=== PATIENT | female | born 1985 | race African-American/Black ===

== ENCOUNTER 2023-01-15 17:23 | Emergency (ER) | payer MEDICAID, SELFPAY ==
[2023-01-15 17:25] VITALS: BP 108/79; PULSE 82; RESP 17; TEMP 36.6; O2SAT 100
--- NOTE | 2023-01-15 18:20 | EX.ED.DYSGE1 ---
HPI History of Present Illness Chief Complaint: Back Detail of Chief Complaint: Scapular pain that started approximately a week ago Informant: patient Onset/Context/Timing Onset: Weeks Context: Sudden Onset Timing: Intermittent Quality: Pain Location: Left scapular region Current Severity: Mild Maximum Severity: Severe Worsened by: Movement of left upper extremity Relieved by: Nothing Associated Symptoms Associated Symptoms: None Narrative Narrative: Patient is a 37-year-old woman who is concerned that she is having a heart attack as her mother of a heart attack. She denies chest pain. She complains of left scapular pain started a week ago. Is described as a sharp pain. Movement of her left upper extremity increases the pain. She has no nausea, vomiting, shortness of breath or diaphoresis. She states she had twinges of chest pain today. She denies black or maroon stool. She denies history of hiatal hernia, reflux or peptic ulcer disease. She denies recent upper respiratory tract infectious symptoms. She denies fever, chills night sweats. She denies headache, visual, ocular auditory symptoms. She denies history of blood clot. She denies leg pain, swelling discoloration. She has no risk factors for blood clot. Prior similar symptoms: No Recent Illness/Hospitalization: No PFSH PFSH Medical History no medical history no medical history Home Medications naproxen 500 mg tablet 500 mg PO BID #14 tabs 01/15/23 [Rx Last Taken Unknown] Allergy/AdvReac Type Severity Reaction Status Date / Time No Known Allergies Allergy Verified 01/15/23 17:28 Surgical History no surgical history no surgical history Social History (Updated 01/15/23 @ 18:[address] Efren Bernstein MD) substance use type: does not use ROS ROS ED Constitutional Constitutional ED: Denies chills, fever(s), subjective, sweats or weight loss Eyes Eyes: Denies blurry vision or change in vision ENT ENT ED: Denies ear pain, rhinorrhea or sore throat Cardiovascular Cardiovascular: Reports chest pain; Denies orthopnea, palpitations, paroxysmal nocturnal dyspnea or racing heartbeat Respiratory/Chest Respiratory/Chest: Denies cough, dyspnea, dyspnea on exertion, orthopnea or paroxysmal nocturnal dyspnea Gastrointestinal Gastrointestinal: Denies abdominal pain, constipation, diarrhea, melena, nausea or vomiting Musculoskeletal Musculoskeletal: Reports back pain; Denies arthralgias, myalgias or neck pain Integumentary Denies rash Neurologic Neurologic: Denies paresthesias or weakness Psychiatric Psychiatric: Reports anxiety Hematologic/Lymphatic Hematologic/Lymphatic: Reports systems reviewed and no addt'l complaints, except as documented EXAM Physical Exam Const Vital Signs: 01/15/23 17:25 Temperature 97.8 F Temperature Source Temporal Pulse Rate 82 Respiratory Rate 17 Blood Pressure 108/79 Blood Pressure Mean 88 Pulse Ox 100 Oxygen Delivery Method Room Air Positive well nourished, well developed and obese General Appearance ED: well developed and NAD; Negative for pallor Nutritional Appearance: obese HEENT Reports moist mucous membranes HEENT Narrative: Head is atraumatic normocephalic. Ears normal. Nares patent. Posterior pharynx is normal. Eyes PERRL and EOMs intact bilaterally General Eye ED: Negative for pale conjunctiva or scleral icterus Neck no lymphadenopathy, supple and no JVD Chest Wall palpation of chest normal Resp normal respiratory effort and clear to auscultation bilaterally Effort and Inspection: Negative for pain with movement Cardio regular rate, regular rhythm, S1 normal heart sound, S2 normal heart sound and no murmurs Back/Spine no CVA tenderness Back/Spine Narrative: There is pain outpatient over the left scapula. Having patient pull her left arm down against resistance causes her pain over the latissimus dorsi region. This reproduces her pain exact. Cervical Spine: Negative for cervical spine tenderness Thoracic Spine / Upper Back: Negative for thoracic spinal tenderness Lumbar Spine / Lower Back: lumbar spinal tenderness Neuro oriented x3, CN's II-XII intact bilaterally and no sensory deficits noted Sensorium / Orientation: alert Motor Exam: strength 5/5 throughout Psych mental status grossly normal Skin no rashes or lesions noted, no wounds and skin turgor normal General Skin Exam: elasticity normal; Negative for jaundice or pallor MDM MDM MDM Narrative Medical decision making narrative: Patient presents with pain that is muscular in etiology based on history and physical. Vital signs are normal. Patient is PERC negative and there is no concern for PE. Symptoms are not concerning for cardiac or respiratory disease. Imaging and blood work was not obtained. History & Record Review Additional record(s) reviewed:: No prior records Discharge Plan Triage Chief Complaint: Back ED Provider: Efren Bernstein Dx/Rx/DC Orders Clinical Impression: Upper back pain on left side Instructions: ED Back and Neck Pain, General Prescriptions: New naproxen 500 mg tablet 500 mg PO BID Qty: 14 0RF Primary Care Provider: Care Physician,No Primary Referrals: Ofelia Guerrero [Non-Staff] - 1 Week if not improving Care Physician,No Primary [Primary Care Provider] - Disposition Disposition: Home, Self Care
[2023-01-15] MEDS: Naproxen 250 MG Tablet 500 MG PO (18:35)
[2023-01-15 18:40] VITALS: BMI 43.6
== END 2023-01-15 18:41 | disposition home or self-care (01) ==
LOC: ED 18:41
PROVIDERS: Emergency Provider Emergency Medicine; Visit Provider Emergency Medicine
DX: M54.9 Dorsalgia, unspecified (principal)
CPT/HCPCS: 99284